=== PATIENT | male | born 1950 | race Caucasian/White ===

== ENCOUNTER 2023-08-03 08:09 | Day surgery (SDC) | payer OTHER, SELFPAY ==
[2023-08-02 10:39] VITALS: BMI 43.5
[2023-08-02 11:23] LABS: % Basophils 0.7 % (0-2); % Eosinophils 1.3 % (0-6); % Immature Granulocytes 0.3 % (0-0.5); % Lymphocytes 21.3 % (20.5-51.1); % Monocytes 8.4 % (1.7-9.3); Absolute Basophils 0.1 10^3/uL (0-0.2); Absolute Eosinophils 0.1 10^3/uL (0-0.7); Absolute Lymphocytes 1.5 10^3/uL (1.2-3.4); Absolute Monocytes 0.6 10^3/uL (0.1-0.6); Absolute Neutrophils 4.7 10^3/uL (1.4-6.5); Hemoglobin 16.2 g/dL (13.0-18.0); Mean Corp Hgb Conc. 32.4 g/dL (33.0-37.0); Mean Corpuscular Hgb 29.1 pg (27.0-31.0); Mean Corpuscular Volume 89.8 fL (80.0-94.0); Mean Platelet Volume 9.8 fL (7.4-10.4); Nucleated Red Blood Cells % 0 % (-); Platelet Count 158 10^3/uL (130-400); Red Blood Cell Count 5.57 10^6/uL (4.70-6.10); Red Cell Dist. Width 15.2 % (11.5-14.5); White Blood Cell Count 6.9 10^3/uL (4.8-10.8)
[2023-08-02 11:35] LABS: ALT (SGPT) 19 U/L (0-50); AST (SGOT) 29 U/L (17-59); Albumin 4.3 g/dl (3.5-5.0); Alkaline Phosphatase 137 U/L (38-126); Blood Urea Nitrogen 33 mg/dl (9-20); Calcium 9.5 mg/dl (8.4-10.2); Carbon Dioxide 30 mmol/L (22-30); Chloride 102 mmol/L (98-107); Estimated Creatinine Clearance 75 ml/min; Glucose 123 mg/dl (70-99); Magnesium 2.3 mg/dl (1.6-2.3); Potassium 4.4 mmol/L (3.5-5.1); Sodium 136 mmol/L (135-145); Total Bilirubin 1.2 mg/dl (0.2-1.3); Total Protein 7.7 g/dl (6.3-8.2); eGFR > 60.00
[2023-08-02 11:41] LABS: INR 1.55; PT 18.4 Sec (11.4-14.6)
[2023-08-03] VITALS (14 sets, daily range): BP systolic 142–181; BP diastolic 92–118
[2023-08-03 09:01] LABS: Glucose - Point of Care 105 mg/dl (70-99)
[2023-08-03 09:10] LABS: PT 17.2 Sec (11.4-14.6)
[2023-08-03] MEDS: NSS 500 IV (09:23)
--- NOTE | 2023-08-03 12:16 | ITS.CL.ICD ---
Cleaner Touch Up Worker - ICD
Implantable Cardioverter Defibrillator
Procedure Report:
ICD LEAD REVISION
Date of Procedure: 08/03/23
Primary equipment man: Dr Alhaji Rojas
PROCEDURES:
ICD
INDICATION FOR PROCEDURE:
Partially dislodged RV defibrillator lead
'Time-out' was called and confirmed. The patient was prepped and draped in sterile fashion. Lidocaine with epi was used for local anesthesia. An incision was made along the previous incision and the device and leads were carefully dissected from
the pocket. Hemostasis was obtained with electrocautery. The RV ICD lead was from the device header. Active fixation was withdrawn. Stylette was placed within the lead. The lead was slowly withdrawn with attention applied. The leads
from the RV myocardium. The lead was then repositioned with its tip towards the mid RV septum. Active fixation was used. Adequate pacing and sensing thresholds were obtained as noted below. The lead was fixed to the pectoral muscle.
The lead was connected to the ICD header. The lead and generator were carefully placed in the pocket after the pocket was irrigated with antibiotic solution. Antibiotic pouch was used. The pocket was closed in a typical fashion.
EXISTING:
ICD Medtronic [id number], SN [id number] , Left Pectoral
RV Medtronic 1026N89, SN [id number] (REVISED /REPOSITIONED)
LBB Medtronic [id number], SN [id number]
DEVICE TESTING:
Sensing: RV 5.4 mV,
Capture: RV 0.5 V@ 0.4 ms, LV 0.5 V@ 0.4 ms,
Ohms: RV 304 , LV 361
FINAL PROGRAMMING:
Cali Pacing: VVIR 80 ppm
Tachy parameters:
VF: 188 bpm, ATP while charging, Shock
CONCLUSIONS:
1. Explant of ICD at [employer]
2. Successful implant ICD generator.
3. Normal function of ICD and leads at implant testing.
RECOMMENDATIONS:
May proceed to AV shelley ablation
Copy to: Dr Alhaji Rojas
--- NOTE | 2023-08-03 13:26 | ITS.CL.ABL ---
Verifier Operator - Ablation
Ablation
Procedure Report:
ELECTROPHYSIOLOGIC EVALUATION AND POSSIBLE ABLATION
Date of procedure: August 03, 2023
Primary drywall installer: Dr. Alhaji Rojas
INDICATION: Atrial fibrillation, permanent, unable to control rates with medical therapy, heart failure with reduced ejection fraction.
PROCEDURE:
Ultrasound Guidance performed by wa was utilized for femoral venous Vascular Access b/l.
The Medtronic multichamber ICD was interrogated and reprogrammed to VVI@40 ppm. Detection was programmed off.
After assuring good capture parameters, a deflectable-tip mapping/ablation catheter was advanced to the medial tricuspid annulus region of the right atrium where a HIS potential was identified. The catheter was slightly withdrawn from this location
to a site more proximal on the right atrial septum, about custodial between the HIS recording position and that of the coronary sinus os. At this location, a small HIS potential was evident along with large amplitude atrial deflections and a
relatively small ventricular electrogram. Radiofrequency energy was applied at this site using a temperature-controlled system resulted in an accelerated junctional rhythm followed by deceleration and heart block. This RF application utilized a 4
mm nonirrigated tip ablation catheter. At the conclusion of this there is no QRS escape rhythm at VVI 40
The Medtronic multichamber ICD was interrogated and found to have stable function compared to the pre-ablation findings.
Device:
ICD Medtronic [id number], SN [id number] , Left Pectoral
RA port is pinned
RV Medtronic 3705G44, SN TDL [id number] (REVISED /REPOSITIONED)
LBB Medtronic 156973, SN [id number]
Sensing: RV 5.4 mV,
Capture: RV 0.5 V@ 0.4 ms, LV 0.5 V@ 0.4 ms,
Ohms: RV 304 , LV 361
Pacing reprogrammed to VVIR @ 80 ppm.
Detection was reprogrammed ON.
COMPLICATIONS: None
SUMMARY:
Ultrasound guided vascular access.
Interrogation and reprograming of multichamber ICD
Successful mapping and ablation of the AV node
RECOMMENDATIONS:
Resume warfarin anticoagulation
Maintain VVIR pacing at 80 ppm and there can be consideration for reducing base pacing rate in 6 to 8 weeks.
Patient is insistent on discharge home. As long as there is no overriding concern for hemostasis of his groin he can be considered for discharge to home later today. Of note, his left bundle preschool lead teacher is functioning normally and has been in
place since October 2022 demonstrating stable capture thresholds.
[2023-08-03 14:42] LABS: Glucose - Point of Care 74 mg/dl (70-99)
[2023-08-03] MEDS: COREG 50 MG PO (16:23)
[2023-08-03] MEDS: ANCEF 5 IV (16:23)
--- NOTE | 2023-08-03 16:54 | W.PN.UPDATE ---
Update Note
Progress Note Update
73 yo WM s/p ICD lead revision and AN node ablation (same day). He feels good, no cp, sob, site stable with pressure dressing in place, EKG V paced, R fem site c/d/i no HT. His BP has been elevated and treated with carvedilol 50mg x1. Activity
restrictions reviewed. He will have inc check in 1 week at [facility] then continue cardiac care with Dr. Lord. He is for d/c home after 5pm and second IV abx dose given.
SUMMARY:
Ultrasound guided vascular access.
Interrogation and reprograming of multichamber ICD
Successful mapping and ablation of the AV node
RECOMMENDATIONS:
Resume warfarin anticoagulation
Maintain VVIR pacing at 80 ppm and there can be consideration for reducing base pacing rate in 6 to 8 weeks.
Patient is insistent on discharge home. As long as there is no overriding concern for hemostasis of his groin he can be considered for discharge to home later today. Of note, his left bundle branch administrator is functioning normally and has been in
place since October 2022 demonstrating stable capture thresholds.
--- NOTE | 2023-08-03 17:20 | PTCARENOTE ---
Patient left with immobilzer and Jonah sharif. Patient BP elevated. States he ran out of coreg at home. Coreg dose given prior to d/c. Was instructed to picker operator medication at pharmacy on the way home. Patient acknowledged understanding of
importance of medication adherence and picking up medication. Patient dressed self and was taken home by neighbor.
== END 2023-08-03 17:24 | disposition home or self-care (01) ==
LOC: CATH 08:09
PROVIDERS: ATTENDING PHYSICIAN Internal Medicine Cardiovascular Disease; FAMILY PHYSICIAN Nurse Practitioner; OTHER PHYSICIAN Student in an Organized Health Care Education/Training Program
DX: I48.21 Permanent atrial fibrillation (principal); T82.120A Displacement of cardiac electrode, initial encounter; Y83.1 Surgical operation with implant of artificial internal device as the cause of abnormal reaction of the patient, or of later complication, without mention of misadventure at the time of the procedure; I25.10 Atherosclerotic heart disease of native coronary artery without angina pectoris; I42.0 Dilated cardiomyopathy; Z79.84 Long term (current) use of oral hypoglycemic drugs; I11.0 Hypertensive heart disease with heart failure; E78.5 Hyperlipidemia, unspecified; E66.01 Morbid (severe) obesity due to excess calories; Z95.5 Presence of coronary angioplasty implant and graft
CPT/HCPCS: 33215; 93287 ×2; C1733; 36415; 80053; 82962; 83735; 85025; 85610; 93005; 93650; C1760